=== PATIENT | female | born 1930 | race Caucasian/White ===

== ENCOUNTER 2016-08-26 15:44 | Inpatient (IN) | payer MEDICARE, BC ==
[~2016-08-26] VITALS: Ht 170.2 cm; Wt 82.0 kg
--- NOTE | ~2016-08-26 | EEP ---
Pacemaker Implant Report Demographics Patient Name ROULA MARTINEZ Gender Female Patient Number [id number] Race Visit Number [id number] Ethnicity Corporate ID Room Number 308 Accession Number [id number] Height 170.18 cm Date of 1930 Weight 83.92 kg Age 86 year(s) BSA 1.96 m Referring Physician Lydia Peterson MD BMI 28.97 kg/m Implanting Physician Radha Fernandez MD Date of Study 08/27/2016 Assisting Physician Performing Physician Radha Fernandez MD The procedure was explained in detail to the patient. Risks, complications and alternative treatments were reviewed. Written consent was obtained. Medications reviewed with patient prior to procedure. Conclusions Implantable Device Summary Summary 1. Successful Dual Chamber Pacemaker implantation. Recommendations 1. A chest X-ray should be performed immediately and in AM. 2. A wound check should be performed in 5- 7 days. Complications No complications. Procedure Procedure Type Pacemaker:Initial Insertion (generator and leads), Dual Lead PM Insert A&V Leads , Miscellaneous, EP Procedure Indications Dizziness, Bradycardia, Second degree AV block/mobitz type I and Hypertension. Procedure Description The patient was brought to the electrophysiology laboratory in a fasting state. A baseline ECG was recorded. Surface ECG leads, intracardiac electrograms, blood pressure measurements, and pulse oximety signals were monitored. A grounding pad was placed on the back. A defibrillator was configured to deliver shocks via self-adhesive anterior posterior defibrillator pads. Conscious sedation was administered. The upper chest area was prepped with ChloraPrep. After a three minute dry time the patient was draped in a sterile fashion. 2 % Lidocaine with bupivacaine was used in the infraclavicular area and an incision was made. Blunt dissection down to the area of the Pectoralis Fascia was performed. Subclavian access was obtained and guidewires were placed into the SVC. 2 % Lidocaine and Bupivacaine was used inferiorly to the incision. Blunt dissection anterior to the Pectoralis Fascia was used to form the pacemaker pocket. Over one wire, an intravenous sheath and dilator were placed in the superior vena cava under fluoroscopic vision. Through the sheath, the ventricular lead was then placed into the right ventricular apex under fluoroscopic vision and tested. The sheath was removed. The lead was sutured to the Pectoralis fascia using non-absorbable suture. Over the other wire, an intravenous sheath and dilator were placed in to the superior vena cava under fluoroscopic vision. Through the sheath, the atrial lead was then placed in the right atrium under fluoroscopic vision and tested. The sheath was removed. The lead was sutured to the Pectoralis Fascia using non-absorbable sutures. The leads were then connected to the pulse generator and screwed tight. The pocket was irrigated with Ancef antibiotic solution. The lead(s) and pulse generator were then placed into the pacemaker pocket. The incision was then closed. It was closed using 3-0 Vicryl for the deep and intermediate layer and 4-0 Vicryl for the subcuticular layer. A sterile dressing was applied. The patient tolerated the procedure well and was returned to the nursing unit in stable condition. Devices and Leads Devices + + +--------+ +------+ +---------+ !Identification!Action !Location!Device name!Serial!Implant !Comments ! ! ! ! ! !# !date ! ! + + +--------+ +------+ +---------+ !New implant !Implanted !Pectoral!ESSCINDYO ![id number]!08/27/2016! ! ! ! ! !HELEN WHITE L111! ! ! ! + + +--------+ +------+ +---------+ Leads + + +---------+ +------+ +---------+ !Identification!Action !Location !Lead name !Serial!Implant !Comments ! ! ! ! ! !# !date ! ! + + +---------+ +------+ +---------+ !New implant !Implanted !RV septum!PACER LEAD![id number]!08/27/2016! ! ! ! ! !INGEVITY ! ! ! ! ! ! ! !MRI 59 CM ! ! ! ! + + +---------+ +------+ +---------+ !New implant !Implanted !RA !PACER LEAD![id number]!08/27/2016! ! ! ! !appendage!INGEVITY ! ! ! ! ! ! ! !MRI 52 CM ! ! ! ! + + +---------+ +------+ +---------+ Leads Measured and Programmed Data + +---------+ +---------+ +---------+ + +--- ----+ !Lead !Sensing Amplitude !Threshold (V) !Pulse Width (ms) !Impendence!Current! ! !(mV) ! ! !(Ohms) !(mA) ! + +---------+ +---------+ +---------+ + +--- ----+ ! !Measured !Programmed !Measured !Programmed !Measured !Programmed ! ! ! + +---------+ +---------+ +---------+ + +--- ----+ !RV septum ! !2.5 !0.4 !3.5 !0.5 !0.5 !741 !0.6 ! + +---------+ +---------+ +---------+ + +--- ----+ !RA !1.7 !0.5 !0.9 !3.5 !0.5 !0.5 !519 !1 ! !appendage ! ! ! ! ! ! ! ! ! + +---------+ +---------+ +---------+ + +--- ----+ Device Programming Bradycardia Zone +-------+--------+--------+--------+ + +------+--------+ !Pacing !Mode !Lower !Upper !Paced AV !Sensed AV !PVARP !VRP (ms)! !Mode !Switch !Rate !Rate !Interval !Interval !(ms) ! ! ! ! !(ppm) !(ppm) !(ms) !(ms) ! ! ! +-------+--------+--------+--------+ + +------+--------+ !DDDR !On !60 !130 !210 !180 !320 !250 ! +-------+--------+--------+--------+ + +------+--------+ Medical History Allergies - No known allergies:. Admission Data Admission Date: 08/26/2016 Admission Time: 15:44 Insurance Payors:Medicare. Hospital Status:Inpatient. Procedure Data Procedure Date:08/27/2016Start:08:21 Fluoroscopy Time: 4:18 minutes.Fluoroscopy Dose: 115 mGy. Estimated blood loss:13 ml. Contrast Material - Isovue 370,10 ml. Procedure Medications Order and Administration + + +---------+---------+ !Time !Medication !Dosage !Route ! + + +---------+---------+ !08/27/2016 07:57 !Ancef !2 g !I.V. ! + + +---------+---------+ !08/27/2016 08:08 !Versed !1 mg !I.V. ! + + +---------+---------+ !08/27/2016 08:08 !Fentanyl !25 mcg !I.V. ! + + +---------+---------+ !08/27/2016 08:16 !Versed !1 mg !I.V. ! + + +---------+---------+ !08/27/2016 08:16 !Fentanyl !25 mcg !I.V. ! + + +---------+---------+ !08/27/2016 08:16 !Oxygen !2 l/min ! ! + + +---------+---------+ !08/27/2016 08:23 !Versed !1 mg !I.V. ! + + +---------+---------+ !08/27/2016 08:23 !Fentanyl !25 mcg !I.V. ! + + +---------+---------+ !08/27/2016 08:48 !Ancef !1 g !Pocket ! + + +---------+---------+ !08/27/2016 08:49 !Versed !1 mg !I.V. ! + + +---------+---------+ !08/27/2016 08:49 !Fentanyl !25 mcg !I.V. ! + + +---------+---------+ !08/27/2016 08:54 !Sodium Chloride !30 ml !I.V. ! + + +---------+---------+ Signatures
--- NOTE | ~2016-08-26 | ECH ---
Transthoracic Echocardiography Report (TTE) Demographics Patient Name JUAN CELESTE Date of Study 08/26/2016 Patient Number [id number] Visit Number [id number] Date of 1930 Room Number 308 Accession Number [id number] Gender Female Age 86 year(s) Referring Leanne Woodward Practice Coordinator Vicky Tyson [facility] Physician MD Lydia Peterson MD Physician Interpreting Leanne Woodward Pharmacy Graduate Intern Physician Supervising Ordering Physician Leanne Woodward MD/TYRAP Nurse Stress Horse Rider Conclusions Summary Technically adequate exam. The estimated left ventricular ejection fraction is 55-60%. There is mild aortic regurgitation by color Doppler. Moderate mitral annular calcification. Mild mitral regurgitation. Procedure Type of Study TTE procedure Procedure Date Date: 08/26/2016 Start: 04:53 PM Technical Quality: Adequate visualization Indications:Heart block and Dizziness. Appropriate Use Criteria: 9 Height: 67 inches Weight: 185 pounds BSA: 1.96 m Rhythm: Irregular HR: 37 bpm BP: 197/65 mmHg M-Mode/2D Measurements LV Diastolic Dimension: 5.09 cm LV Systolic Dimension: 3.69 cm LV Septum Diastolic: 0.62 cm LV PW Diastolic: 1 cm AO Root Dimension: 2.33 cm Cardiac Output: 1.66 l/min LA Dimension: 3.86 cm Cardiac Index: 0.85 l/min*m LA volume index: 20 ml/m LVOT: 1.56 cm RV Base: 2.9 cm LVOT VTI: 23.48 cm RV Mid: 2.2 cm LV Stroke volume: 44.86 ml RV Length: 5.9 cm LV Stroke volume index: 22.89 ml/m Doppler Measurements AV Peak Velocity: 1.77 m/s AV Peak Gradient: 12.53 mmHg AV Mean Gradient: 7.17 mmHg LVOT Peak Velocity: 0.96 m/s AV Area (Continuity):0.89 cm PV Peak Gradient: 2.26 mmHg TR Velocity:2.79 m/s Estimated PASP: 34.06 mmHg TR Gradient:31.06 mmHg Estimated RAP:3 mmHg Estimated RVSP: 34 mmHg RA Area: 10 cm Findings Left Ventricle The left ventricle is normal in size . Diastolic function indeterminate due to patient's arrhythmia. Right Ventricle Normal right ventricle structure and function. Left Atrium Normal left atrial size. Right Atrium Normal right atrial size. Mitral Valve Normal mitral valve structure and function. Mild mitral annular calcification. Mild mitral regurgitation by color Doppler. Aortic Valve Normal aortic valve structure and function. There is mild aortic regurgitation by color Doppler. Tricuspid Valve Normal tricuspid valve structure and function. Mild tricuspid regurgitation by color Doppler. Estimated pulmonary pressures within normal range. Pulmonic Valve Normal pulmonic valve structure and function. Pericardial Effusion No evidence of pericardial effusion. Miscellaneous Visualized portions of the aortic root and ascending aorta appear normal in size. Pleural Effusion No evidence of pleural effusion. Contractility Score LV regional wall motion:(0-Non visualized 1-Normal 2-Hypokinesis 3-Akinesis 4-Dyskinesis 5-Aneurysm) Signature
[~2016-08-26 15:44] MED LIST: BACITRACIN--O.0.9 GM TP; BETADINE DPS1 GM TP; CALTRATE-600 D600 MG PO; COLACE-DPS100 MG PO; COZAAR DPS50 MG PO; GLUCOSAMINE/CHO1 TAB PO; MAPAP PM (TYLEN1 TAB PO; MILK OF MAGNESI10 ML PO; MOBIC15 MG PO; NEURONTIN DPS600 MG PO; PERCOCET 5 DPS1 TAB PO; PRILOSEC DPS20 MG PO; SENOKOT S1 TAB PO; SOOTHE XP EYE D15 ML OU; TEARS NATURAL D15 ML OU; THERAPEUTIC MUL1 TAB PO; TYLENOL DPS325 MG PO; TYLENOL EXTRA500 M1 PO; VALIUM-DPS5 MG PO
--- NOTE | 2016-08-27 08:07 | HP ---
ADMIT: 08/26/2016 RM/LOC: 308 [facility] MR#: [id number] [address] [address] JUAN GAMINO N [address] [place] [address] History and Physical SEX: F AGE: 86 : 1930 DATE OF SERVICE: CHIEF COMPLAINT: Feeling lightheaded and dizzy for approximately seven days. HISTORY OF PRESENT ILLNESS: Ms. Gamino is a well-known patient of [facility], who has a past medical history of chronic back pain, back discomfort. Within the last 6 months, she has had numerous epidural injections as well as surgery on her lumbar vertebrae. She also has had a history of mastectomy, history of hypertension. She is admitted to [facility] as she came to our office with complaints of lightheadedness and dizziness. She has been feeling poorly for approximately a week. On physical exam, she was found to be bradycardic with a heart rate of 37 to 41 beats per minute. On further evaluation, she was found to be in bradycardic heart rate with AV disassociation with Mobitz type 1 with subsequent admission to [facility]. SOCIAL HISTORY: She lives alone, has very good family support. No tobacco or alcohol. ALLERGIES: HER CURRENT ALLERGIES ARE NONE KNOWN. MEDICAL ALLERGIES EXCEPT SEASONAL AND ENVIRONMENTAL ALLERGIES. MEDICATIONS: She is currently on: 1. Calcium. 2. Gabapentin 600 mg one tablet 3 times a day. 3. Glucosamine daily. 4. Losartan 50 mg one tablet daily. 5. Meloxicam 15 mg one tablet daily, which she has not been taking. 6. Multivitamin. 7. Prilosec 20 mg daily. 8. Tylenol. 9. Zantac 75 mg 1 tablet p.r.n. REVIEW OF SYSTEMS: She has been feeling poorly for approximately 7 days. She is status post within the last 6 months back surgery and reports that she was with her son, and he was getting dental care at a free clinic and had to sit in a chair for approximately 8 hours. This led to develop increasing back pain and back discomfort. She has been feeling poorly for approximately 7 days. She has had no anterior chest pain or chest pressure. No increasing shortness of breath or respiratory distress. Denies any changes in her bowel or bladder habits. No peripheral edema. ADMIT: 08/26/2016 RM/LOC: 308 [facility] MR#: [id number] [address] [address] JUAN GAMINO N [address] [place] [address] History and Physical SEX: F AGE: 86 : 1930 PHYSICAL EXAMINATION: GENERAL: She is alert, articulate. HEENT: Normal. HEART: Regular rhythm without murmur or rub. LUNGS: Clear, but diminished to auscultation. ABDOMEN: Soft, nontender, and nondistended. EXTREMITIES: No evidence of peripheral edema. She is bradycardic. ASSESSMENT: Admission of an 86-year-old, white female with bradycardic heart rate, AV disassociation, Mobitz type 1. We will admit, place her in the Intensive Care Unit. She is asymptomatic at this time beyond lightheadedness, she has had no syncope. We will ask Cardiology to see and assist in her care. We will do serial cardiac enzymes. Continue to follow closely. Maritza Freeman MD/ tiera JOB #: [id number] CC: Maritza Freeman, Attending Physician Maritza Freeman, Family Physician
[2016-08-29] MEDS ORDERED: MOBIC15 MG PO (09:47)
[2016-08-29] MEDS ORDERED: NORVASC5 MG PO (09:48)
--- NOTE | 2016-09-06 12:12 | DS ---
ADMIT: 08/26/2016 RM/LOC: 432 [facility] MR#: [id number] [address] [address] CIERRA CELESTE N [address] [place] [address] Discharge Summary SEX: F AGE: 86 : 1930 ADMISSION DATE: 08/26/2016 DISCHARGE DATE: 08/28/2016 DISCHARGE DIAGNOSES: Evidence of AV abelardo block, third degree heart block with placement of pacemaker. Cardiology followup. Lightheadedness and dizziness. History of chronic pain. Degenerative arthritis. Back pain. HISTORY OF PRESENT ILLNESS: Well documented in her H and P. LABORATORY RADIOGRAPHIC ASSESSMENT: As follows. On admission, her hemoglobin was 10.1, white count 6.6. Urinalysis showed 3+ leukocytes, wbc's 205. Her sodium on admission was 146, potassium 4.4, BUN and creatinine 43 and 1.2. Her cortisol was 25.54. TSH was 2.23. Urine micro and blood cultures were negative. Chest x-ray showed cardiomegaly without decompensation. Echo report showed estimated left ventricular ejection fraction of 55% to 60%, mild aortic regurg, and moderate mitral annular calcification, mild mitral regurg. EKG initially showed complete heart block. Procedure; placement of dual- chamber pacemaker. HOSPITAL COURSE: Cierra was admitted to [facility] after being seen and evaluated in the office with approximately a three weeks of lightheadedness, dizziness. On evaluation, she was found to be profoundly bradycardic. Subsequently, she was admitted to [facility], placed in the intensive care unit, seen and evaluated by Cardiology. She had placement of a dual-chamber pacemaker on 08/27/2016. She did well in the postop period and was subsequently discharged home. She will follow up with myself as well as Cardiology. CONDITION: Discharged in stable condition. DISCHARGE MEDICATIONS: Please see MAR for home medications. Maritza Freeman MD/ tiera JOB #: [id number] CC: Maritza Freeman MD, Attending Physician Maritza Freeman MD, Family Physician
--- NOTE | 2016-09-16 14:23 | CO ---
ADMIT: 08/26/2016 RM/LOC: 308 [facility] MR#: [id number] [address] [address] CIERRA CELESTE N [address] [place] [address] Consultation SEX: F AGE: 86 : 1930 DATE OF CONSULTATION: 08/26/2016 ATTENDING PHYSICIAN: Maritza Freeman CONSULTING PHYSICIAN: Tacho Perdomo MD PRIMARY PHYSICIAN: Dr. Maritza Freeman. REASON FOR CONSULT: Heart block. HISTORY OF PRESENT ILLNESS: Cierra is a very nice 86-year-old lady with no prior cardiac history, who I was asked to see at the request of Dr. Freeman after she came into the office today with a one-week history of lightheadedness, presyncope, weakness, and was found to be in high-degree AV block by EKG. She does not take any AV abelardo blocking agents. She does have hypertension. About the past week to 10 days, she said she has been noticing that every morning she gets out of bed. She goes to the bathroom to do her morning routine. When she comes out of the bathroom, she would try to make the bed, but would get very lightheaded and so weak that she could barely make her bed. This has been consistent over the past week. She says she cannot do anything at home but sit. Even sitting sometimes she gets lightheaded, but she has not had any syncope. She denies any palpitations. She has not had any chest discomfort consistent with angina. She has noticed some mildly increasing edema. She came in to see Dr. Freeman today with these concerns and EKG showed complete heart block with normal sinus rhythm, but appears to be a complete heart block. PAST MEDICAL HISTORY: ALLERGIES: THERE ARE NO KNOWN MEDICAL ALLERGIES. HOME MEDICATIONS: Include: 1. Glucosamine. 2. Multivitamin. 3. Eyedrops. 4. Losartan 50 daily. 5. Meloxicam 15 daily. 6. Calcium. 7. Tylenol. 8. Gabapentin 600 mg. 9. She also takes Zegerid as needed. ILLNESSES: Include gastroesophageal reflux disease, hypertension, osteoarthritis, history of breast cancer, and one episode of gout. ADMIT: 08/26/2016 RM/LOC: 308 [facility] MR#: [id number] [address] [address] CIERRA CELESTE N [address] [place] [address] Consultation SEX: F AGE: 86 : 1930 PAST SURGICAL HISTORY: Includes cataract extraction, she is status post left mastectomy 20 years ago for breast cancer. She did not receive radiation. She has had a hysterectomy. She had back surgery for spinal stenosis in March of 2016 and a distant cholecystectomy. FAMILY HISTORY: Negative for heart disease. She had one grandfather, who had diabetes. Her mother at age 87 of "old age." Her father at age 89 of "old age." She has one brother, who had Alzheimer disease. SOCIAL HISTORY: She has lived in [place] since 1973. 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 She has been for 7 years. She has 4 children. She has never smoked. No illicit drug use. Does not use alcohol. She drinks coffee on a daily basis. Does not follow a special diet. REVIEW OF SYSTEMS: GENERAL: In general, she tires easily and that has been going on for 7 to 10 days. EYES: Positive for partial vision loss. She wears glasses. She has had cataract surgery. ENT: Denies hearing loss or problems with nose, mouth or throat. PULMONARY: Positive for snoring loudly, waking more than once a night feeling fatigued in the morning. GASTROINTESTINAL: Positive for heartburn and reflux. GENITOURINARY: Denies dysuria, hematuria, nocturia, urinary tract infection, or kidney stones. Denies history of renal insufficiency or failure. MUSCULOSKELETAL: Positive for arthritis and episode of gout and muscle and joint pains. ENDOCRINE: Negative for thyroid disease. HEMATOLOGIC/LYMPHATIC: Positive for history of breast cancer about 20 years ago. NEUROLOGIC: Denies chronic headaches, dizziness, syncope, stroke, seizures or numbness or tingling. PSYCHIATRIC: Denies history of mental illness or feelings of depression. PHYSICAL EXAMINATION: VITAL SIGNS: Her pulse is 42, her blood pressure was 176/100, respirations are 18. She is afebrile. GENERAL: She is alert and oriented. She appears younger than her stated age. She is in good humor and does not appear to be in any acute distress. EYES: Sclerae clear. No xanthelasmas. ENT: There were intermittent cristobal A waves. No significant bruits are noted. Otherwise, oral mucosa is pink and moist. No jugular venous distention or carotid bruits. CHEST: Mild kyphosis. Otherwise, respirations are even and unlabored. Lungs are clear to auscultation. HEART: Regular with intermittent irregularity. I do not appreciate any significant murmurs, rubs, or gallops. She is markedly bradycardic. ABDOMEN: Soft and nontender. EXTREMITIES: There is mild edema bilaterally. Otherwise, Peripheral pulses ADMIT: 08/26/2016 RM/LOC: 308 [facility] MR#: [id number] [address] [place] [id number] CIERRA CELESTE N [address] [place] [address] Consultation SEX: F AGE: 86 : 1930 palpable. No clubbing, cyanosis or edema. MUSCULOSKELETAL: Positive for kyphosis and changes of osteoarthritis in her hands with Heberden's nodes. Otherwise, Gait is normal. PSYCHIATRIC: Alert and oriented. Mood and affect are appropriate. IMAGING: A 12-lead EKG shows normal sinus rhythm with complete heart block and underlying escape rhythm with mildly widened QRS complex. LABORATORY DATA: Laboratory from Dr. Freeman's office shows a creatinine of 1.5, potassium is 5.2, AST and ALT are normal. White count is 7.8, hemoglobin is 11.5, hematocrit 34, platelet count 287,000. AST and ALT were normal. Thyroid studies are pending. IMPRESSION: 1. Symptomatic complete heart block. 2. Hypertension. 3. History of breast cancer status post left mastectomy. 4. Osteoarthritis. 5. Spinal stenosis with recent back surgery in March of 2016. RECOMMENDATIONS: Her symptoms have been persistent for just over a week. It is consistent with symptomatic high degree or complete heart block. Unless there is some obvious underlying potential etiologies such as thyroid disease, I think she will benefit from a permanent pacemaker implantation. Her potassium is mildly elevated, but it could be due to low-grade hemolysis and I do not think it is high enough to cause her high-degree AV block. We will make sure we recheck it. We will do an echo today. I am tentatively planning on permanent pacemaker implantation tomorrow. I discussed the procedure with her including the potential risks, including, but not limited to, potential infection, bleeding, pneumothorax, or potential complications from anesthesia. She states understanding and if necessary she certainly wishes to proceed. Tacho Perdomo MD/ tiera JOB #: [id number] CC: Maritza Freeman, Attending Physician Maritza Freeman, Family Physician
== END 2016-08-28 13:30 | disposition home or self-care (01) | DRG 244 ==
LOC: 4PCU 15:44 → 3ICU 15:44 → 4PCU 08-27 12:29
PROVIDERS: ADMIT Internal Medicine
PROC: 02HK3JZ Insertion of Pacemaker Lead into Right Ventricle, Percutaneous Approach (ICD-10-PCS; principal; 2016-08-27)
PROC: 0JH606Z Insertion of Pacemaker, Dual Chamber into Chest Subcutaneous Tissue and Fascia, Open Approach (ICD-10-PCS; principal; 2016-08-27)
PROC: 02H63JZ Insertion of Pacemaker Lead into Right Atrium, Percutaneous Approach (ICD-10-PCS; principal; 2016-08-27)
DX: I44.2 Atrioventricular block, complete (principal); E87.5 Hyperkalemia; M48.00 Spinal stenosis, site unspecified; M19.90 Unspecified osteoarthritis, unspecified site; I10 Essential (primary) hypertension; Z90.12 Acquired absence of left breast and nipple; Z85.3 Personal history of malignant neoplasm of breast; Z66 Do not resuscitate

== ENCOUNTER → 2016-09-27 | Outpatient (CLI) | payer MEDICARE, BC ==
[~2016-09-27] MED LIST changes: +NORVASC5 MG PO
== END | disposition home or self-care (01) ==
LOC: RAD.S 13:48
DX: M25.552 Pain in left hip (principal); M25.562 Pain in left knee; M79.652 Pain in left thigh